=== PATIENT | male | born 1990 | race Caucasian/White ===

== ENCOUNTER 2016-09-02 19:42 | Emergency (ER) | payer OTHER ==
[~2016-09-02] VITALS: Ht 182.9 cm; Wt 83.1 kg
[2016-09-02 19:45] VITALS: BP 146/88; PULSE 75; RESP 19; O2SAT 97
[2016-09-02 19:55] VITALS: BP 149/101; PULSE 67; RESP 17; O2SAT 100
--- NOTE | 2016-09-02 20:00 | ED.REPORT ---
HPI-Chest Pain Under 40 Date of Service Sep 02, 2016 ED Provider: Daysi Ghosh MD The patient is a 26 year old otherwise healthy male who was sent to the emergency department from urgent care for concerning EKG findings. The patient has had nasal congestion and runny nose over the last 1.5 weeks. He also has a cold sore which he has had in the past. He denies fever, vomiting, diarrhea or cough. He took a few days off from work but was able to return later last week. His symptoms have been improving but he has noticed intermittent chest pain with exertion. He had an episode today and decided to go to urgent care. He describes the pain as a "general" pain across his chest. The pain seems to be associated with exertion. He denies shortness of breath. He is normally very active. He does not have history of previous medical problems. He does not smoke tobacco. He does not have a regular doctor. Nursing Notes Stated Complaint: CHEST PAIN/URGENT CARE Chief Complaint: Chest Pain Nursing Notes Reviewed: Yes Allergies: Coded Allergies: No Known Allergies (Unverified , 09/02/16) No Active Prescriptions or Reported Meds General Time Seen by MD: 19:59 Chief Complaint Chest pain Hx Obtained From: Patient Arrived By: Walk-in Sudden in Onset?: No Onset Occurred: 1 week ago Symptom Duration: Intermittent Location: : Chest left: Chest right Quality: Painful Radiation: : Does not radiate Migration/Movement: Reports: None Severity: Current: No pain currently Severity: Maximum: Moderate Recent Healthcare: No recent hospitalization Similar Sx Previous: No Past Medical History Past Medical History Denies Past Surgical History Reports: Appendectomy Family History Noncontributory Smoking History Never Smoker Social History Active Alcohol Use: "Social" Other Social History: Local resident Ambulatory Status Independent Review of Systems Constitutional: Denies: Fever Respiratory: Denies: Non-productive cough, Shortness of breath Cardiovascular: Reports: Chest pain Complete sys rev & neg: except as marked. Ears / Nose / Throat: Reports: Nasal congestion, Sinus problem Allergy / Immune: Reports: Rhinorrhea Physical Exam Initial Vital Signs Vital Signs (First) Date Time Temp Pulse Resp B/P Pulse Ox O2 Delivery O2 Flow Rate FiO2 09/02/16 19:45 36.8 75 19 146/88 97 Room Air Initial VS: Reviewed Head / Eyes: Atraumatic, Normocephalic, PERRL ENT: Mucous membranes moist, Conjunctiva normal, No scleral icterus Neck: Supple, Non-tender, Full range of motion Abdomen / GI: Soft, Non-tender, No guarding, No rebound, No distention Lymphatic: No lymphadenopathy Extremities: Vascular intact, Neuro intact, No swelling, No tenderness Skin: Warm, Dry, No cyanosis Neurologic: Alert, Oriented, Nonfocal Psychiatric: Mood/affect normal, Behavior normal, Normal thought content General/Constitutional: Awake, Alert, No acute distress, Cooperative Respiratory / Chest: Atraumatic, Breath sounds NL, Breath sounds = bilat, No respiratory distress, No rales, No rhonchi, No wheezing, No chest tenderness Cardiovascular: Heart rate NL, Regular rhythm, Heart sounds NL, No gallop, No murmurs, No rubs, Peripheral circulation NL, Pulses = bilaterally, No gross BP differential Interpretation & Diagnostics Lab Results Interpretation Result Diagram: 09/02/16195609/02/161956 Test 09/02/16 19:57 White Blood Count 6.7th/mm3 (3.8-10.1) Red Blood Count 4.86mil/mm3 (4.40-5.80) Hemoglobin 15.5g/dL (13.8-17.2) Hematocrit 41.7% (41.0-50.0) Mean Corpuscular Volume 85.8fL (81-100) Mean Corpuscular Hemoglobin 31.9pg (27.0-35.0) Mean Corpuscular Hemoglobin Concent 37.2% (32.0-37.0) Red Cell Distribution Width 12.0% (12.3-15.4) Platelet Count 248bil/L (150-400) Neutrophils (%) (Auto) 47.7% (40-74) Lymphocytes (%) (Auto) 38.5% (14-46) Monocytes (%) (Auto) 10.2% (4-12) Eosinophils (%) (Auto) 2.6% (0-5) Basophils (%) (Auto) 0.8% (0-3) Hold Purple Top Tube Received (Received) D-Dimer < 0.5mg/L (<0.50) Hold Blue Top Tube Received (Received) Sodium Level 138mEq/L (134-144) Potassium Level 3.7mEq/L (3.5-5.2) Chloride Level 100mEq/L (97-108) Carbon Dioxide Level 24mmol/L (18-29) Blood Urea Nitrogen 20mg/dL (6-20) Creatinine 0.87mg/dL (0.76-1.27) Estimat Glomerular Filtration Rate 111mL/min (>59) Glucose Level 100mg/dL (60-99) Calcium Level 9.3mg/dL (8.5-10.1) Magnesium Level 2.0mg/dL (1.6-2.6) Total Bilirubin 0.6mg/dL (0.0-1.2) Aspartate Amino Transf (AST/SGOT) 18U/L (0-50) Alanine Aminotransferase (ALT/SGPT) 17U/L (0-44) Alkaline Phosphatase 65U/L (25-150) Troponin T 0.010ug/L (0.0-0.011) Total Protein 7.9g/dL (6.4-8.4) Albumin 4.9g/dL (3.4-5.0) Hold Red Top Tube Received (Received) Hold [place] Top Tube Received (Received) ECG Interpretation ECG Interpretation: Sinus rhythm with a rate of [address] elevation in all leads, question maycol-myocarditis Time: 19:52 Interpreted by: ED physician X-Ray Chest Interpretation Chest Xray Interpretation: IMPRESSION: No acute cardiopulmonary findings. Dictated by: Mary Sutton M.D. on 09/02/2016 at 21:16 Interpretation / Wet Read by: Interpret - Radiologist Re-Eval/Medical Decision Re-Evaluation/Progress : Time of Eval: 22:05 Re-Evaluation/Progress Note: Discussed plan for discharge. All questions were addressed. Counseled Regarding: Diagnosis, Lab results, Need for follow-up, When/why to return to ED Discharge & Departure Primary Impression: Pericarditis Pericarditis type: unspecified type Chronicity: acute Qualified Code: I30.9 - Acute pericarditis, unspecified Ruled Out: Myocarditis, STEMI (ST elevation myocardial infarction) Disposition: Home Discharge Condition All VS Reviewed: Yes Condition: Stable Patient Instructions: Acute Pericarditis (ED) Additional Instructions: Thank you for entrusting us with your care today. Your symptoms and EKG findings are consistent with pericarditis. Your chest x-ray and labs are reassuring. The treatment is Ibuprofen 600 mg every 6 hours as needed for pain. I recommend taking 600 mg Ibuprofen every 8 hours for the first 4-5 days. After the first few days you do not need to take the Ibuprofen unless you are experiencing pain. Make sure you are feeling better before you start doing strenuous work. If you do experience pain while exercising you should lower the intensity. I recommend that you get a primary provider. I have given you a referral to the residency clinic. Please return to the emergency department for any new or concerning symptoms, specifically: increased pain, shortness of breath at rest or lying flat. Referrals: [facility] Res[facility] Scribe Attestation Portions of this note were transcribed by Dorothea Esparza. I, Dr. Ghosh personally performed the history, physical exam and medical decision-making; I reviewed and confirmed the accuracy of the information in the transcribed note. Signed by:Chiquita Barrios, 09/02/2016 and 2210. Daysi Ghosh MD Sep 02, 2016 20:00 Dorothea Esparza Sep 02, 2016 20:09
[2016-09-02 21:02] LABS: BASOPHILS % (AUTO) 0.8 % (0-3); EOSINOPHILS % (AUTO) 2.6 % (0-5); MONOCYTES % (AUTO) 10.2 % (4-12); Mean Corpuscular Hemoglobin 31.9 pg (27.0-35.0); Mean Corpuscular Volume 85.8 fL (81-100); NEUTROPHILS % (AUTO) 47.7 % (40-74); Platelet Count 248 bil/L (150-400)
[2016-09-02 21:10] VITALS: BP 125/74; PULSE 60; RESP 13; O2SAT 97
--- NOTE | 2016-09-02 21:18 | DRSVH ---
PROCEDURE: X-RAY CHEST ONE VIEW, PORTABLE ([id number]) INDICATIONS: chest pain TECHNIQUE: One view of the chest was acquired. COMPARISON: None. FINDINGS: Surgical changes and devices: None. Lungs and pleura: No pleural effusions or pneumothorax. Lungs are clear. Mediastinum: Mediastinal contours appear normal. Heart size is normal. Bones and chest wall: No suspicious bony lesions. Overlying soft tissues appear unremarkable. IMPRESSION: No acute cardiopulmonary findings. Dictated by: Mary Sutton M.D. on 09/02/2016 at 21:16 Approved by: Mary Sutton M.D. on 09/02/2016 at 21:16
[2016-09-02 21:24] LABS: TROPONIN T 0.01 ug/L (0.0-0.011)
[2016-09-02 23:07] VITALS: BP 128/74; PULSE 58; RESP 16; O2SAT 96
== END 2016-09-02 23:07 | disposition home or self-care (01) ==
LOC: SED 19:42
DX: I30.9 Acute pericarditis, unspecified (principal); R09.81 Nasal congestion